=== PATIENT | male | born 1990 | race African-American/Black ===

== ENCOUNTER 2025-03-11 10:32 | Outpatient (REF) | payer OTHER, SELFPAY ==
--- NOTE | ~2025-03-11 | XR_ITS ---
EXAMINATION: XR KNEE 3 VIEWS LEFT HISTORY: knee pain x 10 + y COMPARISON: There are no prior studies available for comparison. FINDINGS: Three views of the left knee are submitted. Osseous mineralization is normal. There is no fracture or dislocation. The joint spaces are preserved. The soft tissues are unremarkable. XR/XR knee LT 3V IMPRESSION: Unremarkable examination of the left knee. Electronically signed by: Joshua Robertson MD 03/11/2025 01:55 PM EDT
--- OUTSIDE RECORDS SUMMARY | 2025-03-11 09:30 | XMS_ITS | Encounter Summary ---
Author Organization [employer] Address [address] [facility] 7t [place] [address] Care Team Providers Care Business Area Director Name Role Phone Lottie Funez MD Primary Care Provider + Reason for Referral * Consultation (Routine) - Authorized Specialty Diagnoses / Procedures Referred By Contac t Referred To Contact Optometry Diagnoses Elevated blood pressure reading Lottie Funez MD [address] [place] [address] Phone: tel: fax: [facility] [address] [place] [phone] Phone: tel: fax: Referral ID Status Reason Start Date Expiration Date Visits Requested Visits Authorized [id number] Authorized Consult and Treat 03/11/2025 03/11/2026 1 1 Reason for Visit * Reason Comments new patient Encounter Details Date Type Department Care Team (Late st Contact Info) Description 03/11/2025 9:30 AM EDT Office Visit [facility] [address] [place] [phone] Lottie Funez MD [address] [place] [address] Elevated blood pressure reading (Primary Dx); Chronic pain of left knee; Screening examination for sexually transmitted disease Social History Tobacco Use Types Packs/Day Years Used Date Smoking Tobacco: Never Passive Smoke Exposure: Never Smokeless Tobacco: Never Tobacco Cessation:Counseling Given: Not Answered Alcohol Use Standard Drinks/Week Comments Never 0 (1 standard drink = 0.6 oz pur e alcohol) Depression Answer Date Recorded Patient Health Questionnaire-9 Score 0 03/11/2025 Patient Health Questionnaire-9 Score 0 03/11/2025 Last PHQ-9: Questionnaire Data Not on file 0 03/11/2025 Housing Stability Answer Date Recorded What is your housing situation today? I do not have housing (Staying with others, in a hotel, in a alf, living outside on the street, on a beach, in a car, or in a park 03/11/[address] you li ve. Do you have problems with any of the following? None of the above 03/11/2025 Food Insecurity Answer Date Recorded Within the past 12 months, y ou worried that your food would run out before you got money to buy more: Never True 03/11/2025 Within the past 12 months,th e food you bought just didn't last and you didn't have enough money to get more: Never True 04/2025 Transportation Answer Date Recorded In the past 12 months, has l ack of transportation kept you from medical appts, meetings, work or from getting things needed for daily living? Yes, it has kept me from medical appointments or getting medications. 03/11/2025 Utilities Answer Date Recorded In the past 12 months, has t he electric, gas, oil or water company threatened to shut off services in your home? No 03/11/2025 Depression Answer Date Recorded Patient Health Questionnaire-2 Score 0 03/11/2025 Internet Access Answer Date Recorded Internet Access Q1 Yes 03/11/2025 Internet Access Q2 Not on file 03/11/2025 Sex and Gender Information Value Date Recorded Sex Assigned at Male 01/27/2025 2:03 PM EDT Legal Sex Male 2:02 PM EDT Gender Identity Male 01/27/2025 2:03 PM EDT Sexual Orientation Don't know 03/10/2025 3: 51 PM EDT documented as of this encounter Last Filed Vital Signs Vital Sign Reading Time Taken Comments Blood Pressure 120/84 03/11/2025 9:35 AM EDT Pulse 68 03/11/2025 9:35 AM EDT Temperature 36.4 C (97.6 F) 03/11/2025 9:35 AM EDT Respiratory Rate 17 03/11/2025 9:35 AM EDT Oxygen Saturation 99% 03/11/2025 9:35 AM EDT Inhaled Oxygen Concentration - - Weight 75.2 kg (165 lb 12.8 oz) 03/11/2025 9:35 AM EDT Height 175.3 cm (5' 9 ) 03/11/2025 9:35 AM EDT Body Mass Index 24.48 03/11/2025 9:35 AM EDT documented in this encounter Functional Status * Over the past 2 weeks, how often have you been bothered by any of the following problems? Question Answer Date of Assessment Author Patient Health Questionnaire -2 Score 0 03/11/2025 10:23 AM EDT Stella Oshea MA * Little interest or pleasure in doing things Answer Date of Assessment Author Not at all 03/11/2025 10:23 AM CECIT Stella Oshea MA * Feeling down, depressed, or hopeless Answer Date of Assessment Author Not at all 03/11/2025 10:23 AM CECIT Stella Oshea MA * Trouble falling or staying asleep, or sleeping too much Answer Date of Assessment Author Not at all 03/11/2025 10:23 AM CECIT Stella Oshea MA * Feeling tired or having little energy Answer Date of Assessment Author Not at all 03/11/2025 10:23 AM CECIT Stella Oshea MA * Poor appetite or overeating Answer Date of Assessment Author Not at all 03/11/2025 10:23 AM CEICT Stella Oshea MA * Feeling bad about yourself - or that you are a failure or have let yourself or your family down Answer Date of Assessment Author Not at all 03/11/2025 10:23 AM CECIT Stella Oshea MA * Trouble concentrating on things, such as reading the newspaper or watching television Answer Date of Assessment Author Not at all 03/11/2025 10:23 AM Stella Dc MA * Moving or speaking so slowly that other people could have noticed? Or the opposite - being so fidgety or restless that you have been moving around a lot more than usual. Answer Date of Assessment Author Not at all 03/11/2025 10:23 AM Stella Dc MA * Thoughts that you would be better off or hurting yourself in some way Answer Date of Assessment Author Not at all 03/11/2025 10:23 AM EDT Stella Oshea MA * Patient Health Questionnaire-9 Score Answer Date of Assessment Author 0 03/11/2025 10:23 AM EDT Stella Oshea MA * Over the last 2 weeks, how often have you been bothered by any of the following problems? Question Answer Date of Assessment Author Feeling nervous, anxious, or on edge 0 03/11/2025 10:22 AM EDT Stella Oshea MA Not being able to stop or co ntrol worrying 0 03/11/2025 10:22 AM EDT Stella Oshea MA Worrying too much about diff erent things 0 03/11/2025 10:22 AM EDT Stella Oshea MA Trouble relaxing 0 03/11/2025 10:22 AM EDT Stella Oshea MA Being so restless that it is hard to sit still 0 03/11/2025 10:22 AM EDT Stella Oshea MA Becoming easily annoyed or irritable 0 03/11/2025 10:22 AM EDT Stella Oshea MA Feeling afraid as if somethi ng awful might happen 0 03/11/2025 10:22 AM CECIT Stella Oshea MA JAVIER-7 Total Score 0 03/11/2025 10:22 AM EDT Stella Oshea MA documented as of this encounter Progress Notes * Lottie Funez MD - 03/11/2025 9:30 AM EDT SUBJECTIVE: Jim Graham is a 34 y.o. 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 Denies recent illness, injury, or hospitalization. Interview done with in house zimbabwean creole train driver Martha . 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 Acute Concerns: Concerned re high BP reading 2-3y ago around 160s/?. He has never had high BP again. Social History Social History Narrative Not on file Problem List[1] Family History[2] Review of Systems Constitutional: Positive for fatigue. Negative for fever. HENT: Negative for congestion, ear pain, rhinorrhea and sore throat. Eyes: Negative for pain and discharge. Respiratory: Negative for cough and shortness of breath. Cardiovascular: Negative for chest pain. Gastrointestinal: Negative for abdominal pain, constipation, diarrhea and nausea. Endocrine: Negative for polydipsia. Genitourinary: Negative for dysuria and frequency. Musculoskeletal: Positive for arthralgias (knees x 5y). Negative for back pain and neck pain. Neurological: Negative for dizziness, numbness and headaches. Psychiatric/Behavioral: Negative for agitation. OBJECTIVE: Vitals: 03/11/25 0935 BP: 120/84 Pulse: 68 Resp: 17 Temp: 97.6 ??F (36.4 ??C) SpO2: 99% Physical Exam Constitutional: Appearance: Normal appearance. HENT: Right Ear: Tympanic membrane and ear canal normal. Left Ear: Tympanic membrane and ear canal normal. Mouth/Throat: Mouth: Mucous membranes are moist. Pharynx: No oropharyngeal exudate or posterior oropharyngeal erythema. Eyes: Pupils: Pupils are equal, round, and reactive to light. Cardiovascular: Rate and Rhythm: Normal rate and regular rhythm. Heart sounds: No murmur heard. Pulmonary: Breath sounds: Normal breath sounds. No wheezing. Abdominal: General: Bowel sounds are normal. Palpations: Abdomen is soft. Tenderness: There is no abdominal tenderness. Musculoskeletal: General: No tenderness. Normal range of motion. Cervical back: Normal range of motion. No tenderness. Skin: General: Skin is warm. Neurological: General: No focal deficit present. Mental Status: He is alert and oriented to person, place, and time. Psychiatric: Mood and Affect: Mood normal. Problem List Items Addressed This Visit Elevated blood pressure reading - Primary Continue to monitor BP at home and fu with me in 2-4mo Counseled re low salt diet/increase moderate physical activity. Check home BP BIW and prn CP/VELÁZQUEZ/GOMEZ Non smoking patient. Relevant Orders CBC auto differential Comprehensive Metabolic Panel Lipid Panel with Reflex to Direct LDL Chronic pain of left knee Most likely OA/?post traumatic arthritis. Order Xrays, di/w patient re rx including NSAIDS, PT, he wants to hold off until after Xrays are done/ Relevant Orders Vitamin D, 25-Hydroxy, Total, Immunoassay XR Knee 3 Views Left Screening examination for sexually transmitted disease D/w patient re STI prevention, use of condoms, PrEP. Order labs and fu w me in 2mo Relevant Orders T-SPOT??.TB HIV-1/2 Antigen and Antibodies, Fourth Generation, with Reflexes Hepatitis Panel, General Chlamydia/N. Gonorrhoeae RNA, TMA, Urogenitial Syphilis Screen Follow Up: Medications Ordered Prior to Encounter[3] [1] Patient Active Problem List Diagnosis Elevated blood pressure reading Chronic pain of left knee Screening examination for sexually transmitted disease [2] No family history on file. [3] No current outpatient medications on file prior to visit. No current facility-administered medications on file prior to visit. documented in this encounter Miscellaneous Notes * Assessment & Plan Note - Lottie uFnez MD - 03/11/2025 10:01 AM EDT Associated Problem(s): Screening examination for sexually transmitted disease D/w patient re STI prevention, use of condoms, PrEP. Order labs and fu w me in 2mo * Assessment & Plan Note - Lottie Funez MD - 03/11/2025 9:59 AM EDT Associated Problem(s): Chronic pain of left knee Most likely OA/?post traumatic arthritis. Order Xrays, di/w patient re rx including NSAIDS, PT, he wants to hold off until after Xrays are done/ * Assessment & Plan Note - Lottie Funez MD - 03/11/2025 9:57 AM EDT Associated Problem(s): Elevated blood pressure reading Continue to monitor BP at home and fu with me in 2-4mo Counseled re low salt diet/increase moderate physical activity. Check home BP BIW and prn CP/VELÁZQUEZ/GOMEZ Non smoking patient. documented in this encounter Plan of Treatment Upcoming Encounters Date Type Department Care Team (Late st Contact Info) Description 05/25/2025 9:45 AM EST Office Visit [facility] [address] [place], [place] [phone] Lottie Funez MD [address] [place] [phone] Pending Results Name Type Priority Associated Diagnoses Date /Time Comprehensive Metabolic Panel Lab Routine Elevated blood pressure reading 03/11/2025 10:43 AM EDT Lipid Panel with Reflex to Direct LDL Lab Routine Elevated blood pressure reading 03/11/2025 10:43 AM EDT Vitamin D, 25-Hydroxy, Total, Immunoassay Lab Routine Chronic pain of left knee 03/11/2025 10:43 AM EDT Scheduled Orders Name Type Priority Associated Diagnoses Orde r Schedule T-SPOT .TB Lab Routine Screening examination for sexually transmitted disease Expected: 03/11/2025 (Approximate), Expires: 03/11/2026 HIV-1/2 Antigen and Antibodies, Fourth Generation, with Reflexes Lab Routine Screening examination for sexually transmitted disease Expected: 03/11/2025 (Approximate), Expires: 03/11/2026 Hepatitis Panel, General Lab Routine Screening examination for sexually transmitted disease Expected: 03/11/2025 (Approximate), Expires: 03/11/2026 Chlamydia/N. Gonorrhoeae RNA, TMA, Urogenitial Microbiology Routine Screening examination for sexually transmitted disease Ordered: 03/11/2025 Syphilis Screen Lab Routine Screening examination for sexually transmitted disease Expected: 03/11/2025 (Approximate), Expires: 03/11/2026 XR Knee 3 Views Left Imaging Routine Chronic pain of left knee Expected: 03/11/2025 (Approximate), Expires: 03/11/2026 Scheduled Referrals Name Type Priority Associated Diagnoses Orde r Schedule Referral to Optometry Outpatient Referral Routine Elevated blood pressure reading Expected: 03/11/2025 (Approximate), Expires: 03/11/2026 documented as of this encounter Procedures Procedure Name Priority Date/Time Associated Diagnosis Comments VITAMIN D,25-OH,TOTAL,IA Routine 03/11/2025 10:43 AM EDT Chronic pain of left knee LIPID PANEL WITH REFLEX TO DIRECT LDL Routine 03/11/2025 10:43 AM EDT Elevated blood pressure reading CBC WITH AUTO DIFFERENTIAL Routine 03/11/2025 10:43 AM EDT Elevated blood pressure reading COMPREHENSIVE METABOLIC PANEL Routine 03/11/2025 10:43 AM EDT Elevated blood pressure reading documented in this encounter Results * (ABNORMAL) CBC auto differential (03/11/2025 10:43 AM EDT) White Blood Count 3.7(L) 4.8 - 10.8 X10*3/uL [facility] Red Blood Count 4.97 4.60 - 5.80 X10*6/uL [facility] Hemoglobin 14.0 14.0 - 18.0 g/dl [facility] Hematocrit 43.4 42.0 - 52.0 % [facility] Mean Corpuscular Volume 87.3 80.0 - 98.0 fL [facility] Mean Corpuscular Hemoglobin 28.2 27.0 - 33.0 pg [facility] Mean Corpuscular HGB Conc 32.3 31.0 - 36.0 g/dl [facility] Red Cell Distribution Width 11.1 11.0 - 16.0 % [facility] Platelet Count 282 160 - 400 X10*3/uL [facility] Mean Platelet Volume 11.2 9.4 - 12.4 fL [facility] Neutrophils Percent Auto 57.2 45 - 73 % [facility] Imm Gran Pct Auto 0.5(H) 0.0 - 0.4 % [facility] Lymphocytes Percent Auto 35.7 20 - 40 % [facility] Monocytes Percent Auto 5.6 2 - 11 % [facility] Eosinophils Percent Auto 0.5 0 - 4 % [facility] Basophils Percent Auto 0.5 0 - 2 % [facility] NRBC Pct Auto 0.0 0.0 - 0.2 /100WBC [facility] Neutrophils Absolute Auto 2.1 2.0 - 8.3 x10*3/uL [facility] Imm Gran Abs Auto 0.02 0.00 - 0.03 X10*3/uL [facility] Lymphocytes Absolute Auto 1.3 1.2 - 4.9 X10*3/uL [facility] Monocytes Absolute Auto 0.2 0.1 - 1.2 X10*3/uL [facility] Eosinophils Absolute Auto 0.0 0.0 - 0.4 X10*3/uL [facility] Basophils Absolute Auto 0.0 0.0 - 0.2 X10*3/uL [facility] NRBC Abs Auto 0.000 0.0 - 0.012 X10*3/uL [facility] Blood Venous blood specimen / Unknown 03/11/2025 10:43 AM EDT 03/11/2025 11:30 AM EDT Lottie Funez MD LAB BLOOD ORDERABLES Fin al Result [facility] [address] [place] [phone] documented in this encounter Visit Diagnoses Diagnosis Elevated blood pressure reading- Primary Elevated blood pressure reading without diagnosis of hypertension Chronic pain of left knee Screening examination for sexually transmitted disease documented in this encounter Additional Health Concerns Assessment Noted Time PHQ-9 Depression Total Score: 0 03/11/20 25 10:23 AM EDT documented as of this encounter Care Teams Business Area Director Relationship Specialty Start Date End Date Lottie Funez MD [address] [place] [phone] PCP - General Internal Medicine 03/11/25 documented as of this encounter
[2025-03-11 11:34] LABS: MANUAL DIFF FLAG NO
[2025-03-11 12:01] LABS: Hematocrit 43.4 % (42.0-52.0); Hemoglobin 14.0 g/dl (14.0-18.0); Imm Gran Abs Auto 0.02 X10*3/uL (0.00-0.03); Imm Gran Pct Auto 0.5 % (0.0-0.4); Lymphocytes Absolute Auto 1.3 X10*3/uL (1.2-4.9); Mean Corpuscular HGB Conc 32.3 g/dl (31.0-36.0); Mean Corpuscular Hemoglobin 28.2 pg (27.0-33.0); Mean Corpuscular Volume 87.3 fL (80.0-98.0); NRBC Abs Auto 0.000 X10*3/uL (0.0-0.012); NRBC Pct Auto 0.0 /100WBC (0.0-0.2); Platelet Count 282 X10*3/uL (160-400); Red Blood Count 4.97 X10*6/uL (4.60-5.80); White Blood Count 3.7 X10*3/uL (4.8-10.8)
[2025-03-11 12:23] LABS: Alanine Aminotransferase 29 U/L (0-40); Albumin Level 5.0 g/dL (3.5-5.0); Alkaline Phosphatase 65 U/L (39-117); Anion Gap 12 (12-20); Aspartate Amino Transferase 28 U/L (5-37); Blood Urea Nitrogen 8 mg/dL (9-16); Calcium 9.0 mg/dL (8.4-10.2); Carbon Dioxide 30 mmol/L (22-29); Chloride 104 mmol/L (96-108); Cholesterol 120 mg/dL (<200); Estimated Glomerular Filt Rate > 60; HDL Cholesterol 33 mg/dL (>40); Potassium 4.6 mmol/L (3.3-5.1); Sodium 141 mmol/L (135-145); Total Protein 7.5 g/dL (6.5-8.0); Triglycerides 65 mg/dL (<150)
--- OUTSIDE RECORDS SUMMARY | 2025-03-11 13:07 | XMS_ITS | Encounter Summary ---
Author Organization [employer] Address [address] [facility] 7[address] [place] [address] Care Team Providers Care Entertainment Centre Manager Name Role Phone Unavailable Primary Care Provider Unavailabl e Reason for Visit * Reason Onset Date Comments Chart Prep 03/10/2025 Encounter Details Date Type Department Care Team (Late st Contact Info) Description 03/10/2025 Telephone [facility] [address] [place], [place] [phone] Lottie Funez MD [address] [place], [place] [phone] Chart Prep Social History Tobacco Use Types Packs/Day Years Used Date Smoking Tobacco: Never Assessed Depression Answer Date Recorded Patient Health Questionnaire-9 Score 0 03/11/2025 Patient Health Questionnaire-9 Score 0 03/11/2025 Last PHQ-9: Questionnaire Data Not on file 0 03/11/2025 Housing Stability Answer Date Recorded What is your housing situation today? I do not have housing (Staying with others, in a hotel, in a assisted, living outside on the street, on a [...] PM EDT documented as of this encounter Miscellaneous Notes * Telephone Encounter - Miranda Crane MA - 03/10/2025 1:44 PM EDT Chart Prep Labs: not applicable Images: not applicable Referrals: not applicable Vaccines due: Covid, Flu, Tdap, Hep B, and HPV Screenings: HIV Screening, Hepatitis C Screening Overdue care gaps: SBIRT, SDOH, PHQ-9, JAVIER-7, Oral health screening, Disability screen, and Tobacco documented in this encounter Plan of Treatment Upcoming Encounters Date Type Department Care Team (Late st Contact Info) Description 05/25/2025 9:45 AM EST Office Visit [facility] [address] [place] [address] Lottie Funez MD [address] [place] [phone] documented as of this encounter Visit Diagnoses Not on filedocumented in this encounter
--- OUTSIDE RECORDS SUMMARY | 2025-03-11 13:07 | XMS_ITS | Clinical Summary ---
Author Organization [employer] Address [address] [facility] [address] 7[address] [place] [address] Care Team Providers Care Chemists Name Role Phone Lottie Funez MD Primary Care Provider + Allergies No known active allergies Medications Blood Pressure Monitoring (Blood Pressure Cuff) [facility] Use daily as prescribed 1 each Active Active Problems Problem Noted Date Diagnosed Date Elevated blood pressure reading 03/11/2025 Assessment & Plan (03/11/2025 9:57 AM EDT): Continue to monitor BP at home and fu with me in 2-4mo Counseled re low salt diet/increase moderate physical activity. Check home BP BIW and prn CP/VELÁZQUEZ/GOMEZ Non smoking patient. Chronic pain of left knee 03/11/2025 Assessment & Plan (03/11/2025 9:59 AM EDT): Most likely OA/?post traumatic arthritis. Order Xrays, di/w patient re rx including NSAIDS, PT, he wants to hold off until after Xrays are done/ Screening examination for sexually transmitted d isease 03/11/2025 Assessment & Plan (03/11/2025 10:01 AM EDT): D/w patient re STI prevention, use of condoms, PrEP. Order labs and fu w me in 2mo Encounters Date Type Department Care Team Description 03/11/2025 9:30 AM EDT Office Visit [facility] [address] [place], [place] [phone] Lottie Funez MD Elevated blood pressure reading (Primary Dx); Chronic pain of left knee; Screening examination for sexually transmitted disease 03/11/2025 Travel 03/10/2025 Telephone [facility] [address] [place] [address] Lottie Funez MD Chart Prep 03/05/2025 Telephone [facility] [address] [place] [address] Anirudh Kuhn MD New Patient appt. 01/27/2025 Telephone [facility] [address] [place] [phone] Alissa Dennis MD from Last 3 Months Social History Tobacco Use Types Packs/Day Years [...] with others, in a hotel, in a fpc, living outside on the street, on a [...] Don't know 03/10/2025 3: 51 PM EDT Last Filed Vital Signs Vital Sign Reading [...] Mass Index 24.48 03/11/2025 9:35 AM EDT Plan of Treatment Upcoming Encounters Date Type Department Care Team (Late st Contact Info) Description 05/25/2025 9:45 AM EST Office Visit [facility] [address] [place], [place] [phone] Lottie Funez MD [address] [place] [address] Health Maintenance Due Date Last Done Comments HIV Screening 1988 Family Planning (PISQ) 2003 HPV Vaccines (1 - Male 3-dos e series) 2003 Hepatitis C Screening 2006 DTaP/Tdap/Td Vaccines (1 - Tdap) 2007 Hepatitis B Vaccines (1 of 3 - 19+ 3-dose series) 2007 COVID-19 Vaccine (1 - 2023-2 5 season) 2025 Influenza Vaccine (#1) 2025 Alcohol/Substance Use Screening 03/11/2026 03/11/2025 Depression Screening 03/11/2026 03/11/2025, 03/11/2025 Disability Screening 03/11/2026 03/11/2025 SDOH Screening 03/11/2026 03/11/2025 Tobacco Screening 03/11/2026 03/11/2025 Lipid Panel 03/11/2030 03/11/2025 Zoster Vaccines (1 of 2) 2038 RSV Patients and Patients Aged 60 years or older (1 - 1-dose 75+ series) 2063 HIB Vaccines Aged Out No longer eligi ble based on patient's age to complete this topic Hepatitis A Vaccines Aged Out No long er eligible based on patient's age to complete this topic IPV Vaccines Aged Out No longer eligi ble based on patient's age to complete this topic Meningococcal B Vaccine Aged Out No l onger eligible based on patient's age to complete this topic Meningococcal Vaccine Aged Out No mar christopher eligible based on patient's age to complete this topic Pneumococcal Vaccine: Pediatrics (0 to 5 Years) and At-Risk Patients (6 to 49) Years Aged Out No longer eligible b ased on patient's age to complete this topic RSV under 20 months Aged Out No longe r eligible based on patient's age to complete this topic Rotavirus Vaccines Aged Out No longer eligible based on patient's age to complete this topic Procedures Procedure Name Priority Date/Time Associated Diagnosis Comments VITAMIN D,25-OH,TOTAL,IA Routine 03/11/2025 10:43 AM EDT Chronic pain of left knee LIPID PANEL WITH REFLEX TO DIRECT LDL Routine 03/11/2025 10:43 AM EDT Elevated blood pressure reading COMPREHENSIVE METABOLIC PANEL Routine 03/11/2025 10:43 AM EDT Elevated blood pressure reading CBC WITH AUTO DIFFERENTIAL Routine 03/11/2025 10:43 AM EDT Elevated blood pressure reading from Last 3 Months Results * (ABNORMAL) CBC auto differential (03/11/2025 10:43 AM EDT) White Blood Count 3.7(L) 4.8 - 10.8 X10*3/uL [facility] Red Blood Count 4.97 4.60 - 5.80 X10*6/uL [facility] Hemoglobin 14.0 14.0 - 18.0 g/dl [facility] Hematocrit 43.4 42.0 - 52.0 % [facility] Mean Corpuscular Volume 87.3 80.0 - 98.0 fL [facility] Mean Corpuscular Hemoglobin 28.2 27.0 - 33.0 pg [facility] Mean Corpuscular HGB Conc 32.3 31.0 - 36.0 g/dl [facility] Red Cell Distribution Width 11.1 11.0 - 16.0 % [facility] Platelet Count 282 160 - 400 X10*3/uL [facility] Mean Platelet Volume 11.2 9.4 - 12.4 fL [facility] Neutrophils Percent Auto 57.2 45 - 73 % [facility] Imm Gran Pct Auto 0.5(H) 0.0 - 0.4 % [facility] Lymphocytes Percent Auto 35.7 20 - 40 % [facility] Monocytes Percent Auto 5.6 2 - 11 % [facility] Eosinophils Percent Auto 0.5 0 - 4 % [facility] Basophils Percent Auto 0.5 0 - 2 % [facility] NRBC Pct Auto 0.0 0.0 - 0.2 /100WBC [facility] Neutrophils Absolute Auto 2.1 2.0 - 8.3 x10*3/uL [facility] Imm Gran Abs Auto 0.02 0.00 - 0.03 X10*3/uL [facility] Lymphocytes Absolute Auto 1.3 1.2 - 4.9 X10*3/uL [facility] Monocytes Absolute Auto 0.2 0.1 - 1.2 X10*3/uL [facility] Eosinophils Absolute Auto 0.0 0.0 - 0.4 X10*3/uL [facility] Basophils Absolute Auto 0.0 0.0 - 0.2 X10*3/uL [facility] NRBC Abs Auto 0.000 0.0 - 0.012 X10*3/uL [facility] Blood Venous blood specimen / Unknown 03/11/2025 10:43 AM EDT 03/11/2025 11:30 AM EDT us Lottie Funez MD LAB BLOOD ORDERABLES Fin al Result [facility] [address] [place] [phone] from Last 3 Months Insurance N F[employer] Care Teams Chemists Relationship Specialty Start Date End Date Lottie Funez MD [address] [place] [phone] PCP - General Internal Medicine 03/11/25
--- OUTSIDE RECORDS SUMMARY | 2025-03-11 13:07 | XMS_ITS | Encounter Summary ---
Author Organization [employer] Address [address] [facility] [address] [place] [address] Care Team Providers Care Senior Product Engineer Name Role Phone Lottie Funez MD Primary Care Provider + Encounter Details Date Type Department Care Team (Latest Contact Info) Description 03/11/2025 Travel Social History Tobacco Use Types Packs/Day Years Used Date Smoking Tobacco: Never Passive Smoke Exposure: Never Smokeless Tobacco: Never Alcohol Use Standard Drinks/Week Comments Never 0 [...] with others, in a hotel, in a longterm, living outside on the street, on a [...] PM EDT documented as of this encounter Functional Status * Over the past 2 weeks, how often have you been bothered by any of the following problems? Question Answer Date of Assessment Author Patient Health Questionnaire -2 Score 0 03/11/2025 10:23 AM Stella Dc MA * Little interest or pleasure in doing things Answer Date of Assessment Author Not at all 03/11/2025 10:23 AM Stella Dc MA * Feeling down, depressed, or hopeless Answer Date of Assessment Author Not at all 03/11/2025 10:23 AM Stella Dc MA * Trouble falling or staying asleep, or sleeping too much Answer Date of Assessment Author Not at all 03/11/2025 10:23 AM Stella Dc MA * Feeling tired or having little energy Answer Date of Assessment Author Not at all 03/11/2025 10:23 AM Stella Dc MA * Poor appetite or overeating Answer Date of Assessment Author Not at all 03/11/2025 10:23 AM Stella Dc MA * Feeling bad about yourself - or that you are a failure or have let yourself or your family down Answer Date of Assessment Author Not at all 03/11/2025 10:23 AM Stella Dc MA * Trouble concentrating on things, such [...] 03/11/2025 10:23 AM Stella Dc MA * Patient Health Questionnaire-9 Score Answer Date of Assessment Author 0 03/11/2025 10:23 AM Stella Dc MA * Over the last 2 weeks, how often have you been bothered by any of the following problems? Question Answer Date of Assessment Author Feeling nervous, anxious, or on edge 0 03/11/2025 10:22 AM CECIT Stella Oshea MA Not being able to stop or co ntrol worrying 0 03/11/2025 10:22 AM Stella Dc MA Worrying too much about diff erent things 0 03/11/2025 10:22 AM Stella Dc MA Trouble relaxing 0 03/11/2025 10:22 AM Stella Dc MA Being so restless that it is hard to sit still 0 03/11/2025 10:22 AM Stella Dc MA Becoming easily annoyed or irritable 0 03/11/2025 10:22 AM Stella Dc MA Feeling afraid as if somethi ng awful might happen 0 03/11/2025 10:22 AM Stella Dc MA JAVIER-7 Total Score 0 03/11/2025 10:22 AM Stella Dc MA documented as of this encounter Plan of Treatment Upcoming Encounters Date Type Department Care Team (Late st Contact Info) Description 05/25/2025 9:45 AM EST Office Visit [facility] [address] [place] [address] Lottie Funez MD [address] [place] [address] documented as of this encounter Visit Diagnoses Not on filedocumented in this encounter Additional Health Concerns Assessment Noted Time PHQ-9 Depression Total Score: 0 03/11/20 10:23 AM EDT documented as of this encounter Care Teams Senior Product Engineer Relationship Specialty Start Date End Date Lottie Funez MD [address] [place] [phone] PCP - General Internal Medicine 03/11/25 documented as of this encounter
[2025-03-11 13:16] LABS: Reflex LDLD? No
[2025-03-12 08:21] LABS: HBS Num1 1.85 mIU/mL (0-7.99); HBc Num1 0.08 S/CO (0.00-0.79); HBsAGNum1 0.53 S/CO (0.00-0.99); HIV Num 1 0.04 S/CO (0.00-0.99); Hepatitis A Antibody IgM 0.34 Index (0-0.79); Hepatitis B Surface Antigen Negative (Negative); ~HepC Num1 0.08 S/CO (0.00-0.79); ~Hepatitis A Antibody IgM Nonreactive (Nonreactive); ~Hepatitis B Surface Antibody NONREACTIVE (Nonreactive); ~Hepatitis C Antibody Nonreactive (Nonreactive)
[2025-03-12 08:28] LABS: Syphilis Screen Nonreactive (Nonreactive)
[2025-03-14 08:24] LABS: TS Negative Control Passed; TS Panel A 0; TS Panel B 0; TS Positive Control Passed; TSpotTB Negative (Negative)
== END 2025-03-11 10:33 | disposition home or self-care (01) ==
LOC: HO.HHCL 10:32
PROVIDERS: PCP Internal Medicine; Visit Provider Internal Medicine
DX: Z11.4 Encounter for screening for human immunodeficiency virus [HIV] (principal); Z11.1 Encounter for screening for respiratory tuberculosis; M25.562 Pain in left knee; G89.29 Other chronic pain; R03.0 Elevated blood-pressure reading, without diagnosis of hypertension; Z13.6 Encounter for screening for cardiovascular disorders; Z13.21 Encounter for screening for nutritional disorder
CPT/HCPCS: 36415; 73562; 80053; 80061; 82306; 85025; 86481; 86704; 86706; 86709; 86780; 86803; 87340; 87389

== ENCOUNTER → 2025-03-11 10:53 | Outpatient (BNV) | payer SELFPAY | PROVIDERS: PCP Internal Medicine; Visit Provider Radiology Diagnostic Radiology | DX: M25.562 Pain in left knee (principal) | CPT/HCPCS: 73562 ==

== ENCOUNTER 2025-05-25 11:20 | Outpatient (REF) | payer OTHER, SELFPAY ==
--- OUTSIDE RECORDS SUMMARY | 2025-05-25 09:45 | XMS_ITS | Encounter Summary ---
Author Organization [email or web address] Address [address] [facility] [address] [place] [address] Care Team Providers Care Sling Operator Name Role Phone Lottie Funez MD Primary Care Provider + Reason for Referral * Consultation (Routine) - Canceled Specialty Diagnoses / Procedures Referred By Yuval t Referred To Contact Physical Therapy Diagnoses Chronic pain of left knee Lottie Funez MD [address] [place] [address] Phone: tel: fax: [facility] [address] [place] [phone] Phone: tel: fax: Referral ID Status Reason Start Date Expiration Date Visits Requested Visits Authorized [id number] Canceled Specialty Services Required 05/25/2025 05/25/2026 1 1 Encounter Details Date Type Department Care Team (Late st Contact Info) Description 05/25/2025 9:45 AM EST Office Visit [facility] [address] [place] [address] [phone] Lottie Funez MD [address] [place] [address] [phone] Chronic pain of left knee (Primary Dx); Elevated blood pressure reading; Leukocytosis, unspecified type; Immunization declined; Dietary counseling; Exercise counseling; Overweight Social History Tobacco Use Types Packs/Day Years Used Date Smoking Tobacco: Never Passive Smoke Exposure: Never Smokeless Tobacco: Never Alcohol Use Standard Drinks/Week Comments Never 0 (1 standard drink = 0.6 oz pur e alcohol) Alcohol Answer Date Recorded How often do you have a drink containing alcohol ? 1 05/25/2025 How many drinks containing a lcohol do you have on a typical day when you are drinking? 0 05/25/2025 How often do you have six or more drinks on one occasion? 0 05/25/2025 Depression Answer Date Recorded Patient Health Questionnaire-9 Score 0 03/11/2025 Patient Health Questionnaire-9 Score 0 03/11/2025 Last PHQ-9: Questionnaire Data Not on file 0 03/11/2025 Housing Stability Answer Date Recorded What is your housing situation today? I do not have housing (Staying with others, in a hotel, in a penitentiary, living outside on the street, on a [...] Sign Reading Time Taken Comments Blood Pressure 118/74 05/25/2025 9:54 AM EST Pulse 69 05/25/2025 9:54 AM EST Temperature 36.9 C (98.5 F) 05/25/2025 9:54 AM EST Respiratory Rate 18 05/25/2025 9:54 AM EST Oxygen Saturation 100% 05/25/2025 9:54 AM EST Inhaled Oxygen Concentration - - Weight 75.9 kg (167 lb 6.4 oz) 05/25/2025 9:54 A M EST Height 172 cm (5' 7.72 ) 05/25/2025 9:54 AM EST Body Mass Index 25.67 05/25/2025 9:54 AM EST documented in this encounter Miscellaneous Notes * Assessment & Plan Note - Mague Irwin NP - 05/25/2025 9:45 AM EST Associated Problem(s): Chronic pain of left knee - Chronic left knee pain persists despite normal X-ray findings, with no evidence of fracture or soft tissue swelling. - Recommended initiation of physical therapy to address ongoing pain and improve function. Providededucation regarding the purpose and benefits of physical therapy. - Encouraged to return to the office for a visit if there is an exacerbation to his condition - Continue with the use of the Ibuprofen as needed. * Assessment & Plan Note - Mague Irwin NP - 05/25/2025 9:45 AM EST Associated Problem(s): Elevated blood pressure reading - Elevated blood pressure noted on previous visit, no new symptoms such as headache, dizziness, dyspnea, or visual changes reported. - Advised lifestyle modifications including increased exercise and dietary changes to improve cardiovascular health and raise HDL cholesterol. Recommended follow-up monitoring of blood pressure - Encouraged to monitor BP 2-3 times per week, report findings during his next visit. documented in this encounter Plan of Treatment Upcoming Encounters Date Type Department Care Team (Late st Contact Info) Description 08/11/2025 1:00 PM EST Office Visit [facility] [address] [place] [address] Stephanie Phan, OD [address] [place] [address] Scheduled Referrals Name Type Priority Associated Diagnoses Orde r Schedule Referral to Physical Therapy Outpatient Referral Routine Chronic pain of left knee Expected: 05/25/2025 (Approximate), Expires: 05/25/2026 documented as of this encounter Procedures Procedure Name Priority Date/Time Associated Diagnosis Comments CBC WITH AUTO DIFFERENTIAL Routine 05/25/2025 11:32 AM EST Leukocytosis, unspecified type documented in this encounter Results * (ABNORMAL) CBC auto differential (05/25/2025 11:32 AM EST) White Blood Count 4.7(L) 4.8 - 10.8 X10*3/uL [facility] Red Blood Count 4.64 4.60 - 5.80 X10*6/uL [facility] Hemoglobin 13.3(L) 14.0 - 18.0 g/dl [facility] Hematocrit 41.3(L) 42.0 - 52.0 % [facility] Mean Corpuscular Volume 89.0 80.0 - 98.0 fL [facility] Mean Corpuscular Hemoglobin 28.7 27.0 - 33.0 pg [facility] Mean Corpuscular HGB Conc 32.2 31.0 - 36.0 g/dl [facility] Red Cell Distribution Width 11.4 11.0 - 16.0 % [facility] Platelet Count 251 160 - 400 X10*3/uL [facility] Mean Platelet Volume 11.9 9.4 - 12.4 fL [facility] Neutrophils Percent Auto 53.4 45 - 73 % [facility] Imm Gran Pct Auto 0.2 0.0 - 0.4 % [facility] Lymphocytes Percent Auto 36.1 20 - 40 % [facility] Monocytes Percent Auto 8.2 2 - 11 % [facility] Eosinophils Percent Auto 1.5 0 - 4 % [facility] Basophils Percent Auto 0.6 0 - 2 % [facility] NRBC Pct Auto 0.0 0.0 - 0.2 /100WBC [facility] Neutrophils Absolute Auto 2.5 2.0 - 8.3 x10*3/uL [facility] Imm Gran Abs Auto 0.01 0.00 - 0.03 X10*3/uL [facility] Lymphocytes Absolute Auto 1.7 1.2 - 4.9 X10*3/uL [facility] Monocytes Absolute Auto 0.4 0.1 - 1.2 X10*3/uL [facility] Eosinophils Absolute Auto 0.1 0.0 - 0.4 X10*3/uL [facility] Basophils Absolute Auto 0.0 0.0 - 0.2 X10*3/uL [facility] NRBC Abs Auto 0.000 0.0 - 0.012 X10*3/uL [facility] Blood Venous blood specimen / Unknown 05/25/2025 11:32 AM EST 05/25/2025 1:04 PM EST us Lottie Funez MD LAB BLOOD ORDERABLES Fin al Result [facility] [address] [place] [phone] documented in this encounter Visit Diagnoses Diagnosis Chronic pain of left knee- Primary Elevated blood pressure reading Elevated blood pressure reading without diagnosis of hypertension Leukocytosis, unspecified type Immunization declined Dietary counseling Dietary surveillance and counseling Exercise counseling Overweight documented in this encounter Additional Health Concerns Assessment Noted Time PHQ-9 Depression Total Score: 0 03/11/20 25 10:23 AM EDT documented as of this encounter Care Teams Sling Operator Relationship Specialty Start Date End Date Lottie Funez MD [address] [place] [phone] PCP - General Internal Medicine 03/11/25 documented as of this encounter
[2025-05-25 13:11] LABS: MANUAL DIFF FLAG NO
[2025-05-25 13:18] LABS: Hematocrit 41.3 % (42.0-52.0); Hemoglobin 13.3 g/dl (14.0-18.0); Imm Gran Abs Auto 0.01 X10*3/uL (0.00-0.03); Imm Gran Pct Auto 0.2 % (0.0-0.4); Lymphocytes Absolute Auto 1.7 X10*3/uL (1.2-4.9); Mean Corpuscular HGB Conc 32.2 g/dl (31.0-36.0); Mean Corpuscular Hemoglobin 28.7 pg (27.0-33.0); Mean Corpuscular Volume 89.0 fL (80.0-98.0); NRBC Abs Auto 0.000 X10*3/uL (0.0-0.012); NRBC Pct Auto 0.0 /100WBC (0.0-0.2); Platelet Count 251 X10*3/uL (160-400); Red Blood Count 4.64 X10*6/uL (4.60-5.80); White Blood Count 4.7 X10*3/uL (4.8-10.8)
--- OUTSIDE RECORDS SUMMARY | 2025-05-25 14:55 | XMS_ITS | Encounter Summary ---
Author Organization [employer] Address [address] [facility] [address] [place] [address] Care Team Providers Care Soft Shoe Dancer Name Role Phone Lottie Funez MD Primary Care Provider + Encounter Details Date Type Department Care Team (Latest Contact Info) Description 05/25/2025 Travel Social History Tobacco Use Types Packs/Day [...] with others, in a hotel, in a long-term, living outside on the street, on a [...] PM EDT documented as of this encounter Plan of Treatment Upcoming Encounters Date Type Department Care Team (Late st Contact Info) Description 08/11/2025 1:00 PM EST Office Visit [facility] [address] [place] [address] Stephanie Phan, OD [address] [place] [address] documented as of this encounter Visit Diagnoses Not on filedocumented in this encounter Additional Health Concerns Assessment Noted Time PHQ-9 Depression Total Score: 0 03/11/20 10:23 AM EDT documented as of this encounter Care Teams Soft Shoe Dancer Relationship Specialty Start Date End Date Lottie Funez MD [address] [place] [phone] PCP - General Internal Medicine 03/11/25 documented as of this encounter
--- OUTSIDE RECORDS SUMMARY | 2025-05-25 14:56 | XMS_ITS | Clinical Summary ---
Author Organization [employer] Address [address] [facility] [address] [place] [address] Care Team Providers Care Vacuum Form Operator Name Role Phone Lottie Funez MD Primary Care Provider + Allergies No known active allergies Medications Blood Pressure Monitoring (Blood Pressure Cuff) misc Use daily as prescribed 1 each 5 Active Active Problems Problem Noted Date Diagnosed Date Elevated blood pressure reading 03/11/2025 Assessment & Plan (05/25/2025 11:12 AM EST): - Elevated blood pressure noted on previous visit, no new symptoms such as headache, dizziness, dyspnea, or visual changes reported. - Advised lifestyle modifications including increased exercise and dietary changes to improve cardiovascular health and raise HDL cholesterol. Recommended follow-up monitoring of blood pressure - Encouraged to monitor BP 2-3 times per week, report findings during his next visit. Assessment & Plan (03/11/2025 9:57 AM EDT): Continue to monitor BP at home and fu with me in 2-4mo Counseled re low salt diet/increase moderate physical activity. Check home BP BIW and prn CP/VELÁZQUEZ/GOMEZ Non smoking patient. Chronic pain of left knee 03/11/2025 Assessment & Plan (05/25/2025 11:12 AM EST): - Chronic left knee pain persists despite normal X-ray findings, with no evidence of fracture or soft tissue swelling. - Recommended initiation of physical therapy to address ongoing pain and improve function. Provided education regarding the purpose and benefits of physical therapy. - Encouraged to return to the office for a visit if there is an exacerbation to his condition - Continue with the use of the Ibuprofen as needed. Assessment & Plan (03/11/2025 9:59 AM EDT): [...] Encounters Date Type Department Care Team Description 05/25/2025 9:45 AM EST Office Visit [facility] MED[facility] [address] [place] [phone] Lottie Funez MD Chronic pain of left knee (Primary Dx); Elevated blood pressure reading; Leukocytosis, unspecified type; Immunization declined; Dietary counseling; Exercise counseling; Overweight 05/25/2025 Travel 05/22/2025 Telephone [facility] [address] [place] [phone] Lottie Funez MD chart prep 04/20/2025 Travel 03/19/2025 Telephone [facility] OPTOMETRY [address] [place] [address] Stephanie Phan, JOSSE 03/11/2025 9:30 AM EDT Office Visit [address] [address] Lottie Funez MD Elevated blood pressure reading (Primary Dx); Chronic pain of left knee; Screening examination for sexually transmitted disease 03/11/2025 Travel 03/10/2025 Telephone [facility] MEDICINE [address] [place] [address] Lottie Funez MD Chart Prep 03/05/[address] [address] Anirudh Kuhn MD New Patient appt. from Last 3 Months Social History Tobacco [...] with others, in a hotel, in a mcc, living outside on the street, on a [...] Mass Index 25.67 05/25/2025 9:54 AM EST Plan of Treatment Upcoming Encounters Date Type Department Care Team ([facility] st Contact Info) Description 08/11/2025 1:00 PM EST Office Visit [facility] OPTOMETRY [address] [place], [place] [phone] Tarlou Stephanie, OD [address] [place], [place] [phone] Health Maintenance Due Date Last Done Comments Family Planning (PISQ) 2003 HPV Vaccines (1 - Male 3-dos e series) 2003 DTaP/Tdap/Td Vaccines (1 - Tdap) 2007 Hepatitis B Vaccines (1 of 3 - 19+ 3-dose series) 2007 COVID-19 Vaccine ( - 2024-2 6 season) 2025 Influenza Vaccine (#1) 2025 Alcohol/Substance Use Screening 03/11/2026 03/11/2025 Depression Screening 03/11/2026 03/11/2025, 03/11/2025 Disability Screening 03/11/2026 03/11/2025 SDOH Screening 03/11/2026 03/11/2025 Tobacco Screening 05/25/2026 05/25/2025 Lipid Panel 03/11/2030 03/11/2025 Zoster Vaccines (1 of 2) 2038 RSV Patients and Patients Aged 60 years or older (1 - 1-dose 75+ series) 2063 HIV Screening Completed 03/11/2025 Hepatitis C Screening Completed 03/11/2025 HIB Vaccines Aged Out No longer eligi [...] 05/25/2025 11:32 AM EST Leukocytosis, unspecified type XR KNEE 3 VIEWS LEFT Routine 03/11/2025 1:48 PM EDT Chronic pain of left knee SYPHILIS SCREEN Routine 03/11/2025 10:43 AM EDT Screening examination for sexually transmitted disease HEPATITIS PANEL, GENERAL Routine 03/11/2025 10:43 AM EDT Screening examination for sexually transmitted disease HIV 1/2 ANTIGEN/ANTIBODY, FOURTH GENERATION W/RFL Routine 03/11/2025 10:43 AM EDT Screening examination for sexually transmitted disease T-SPOT(R).TB Routine 03/11/2025 10:43 AM EDT Screening examination for sexually transmitted disease VITAMIN D,25-OH,TOTAL,IA Routine 03/11/2025 10:43 AM EDT Chronic pain of left knee LIPID PANEL WITH REFLEX TO DIRECT LDL Routine 03/11/2025 10:43 AM EDT Elevated blood pressure reading COMPREHENSIVE METABOLIC PANEL Routine 03/11/2025 10:43 AM EDT Elevated blood pressure reading CBC WITH AUTO DIFFERENTIAL Routine 03/11/2025 10:43 AM EDT Elevated blood pressure reading from Last 3 Months Results * (ABNORMAL) CBC auto differential (05/25/2025 11:32 AM EST) Only the most recent of2 resultswithin the time period is included. White Blood Count 4.7(L) 4.8 - 10.8 X10*3/uL [facility] Red Blood Count 4.64 4.60 - 5.80 X10*6/uL [facility] Hemoglobin 13.3(L) 14.0 - 18.0 g/dl [facility] Hematocrit 41.3(L) 42.0 - 52.0 % [facility] Mean Corpuscular Volume 89.0 80.0 - 98.0 fL [facility] Mean Corpuscular Hemoglobin 28.7 27.0 - 33.0 pg [facility] Mean Corpuscular HGB Conc 32.2 31.0 - 36.0 g/dl [facility] Red Cell Distribution Width 11.4 11.0 - 16.0 % [facility] Platelet Count 251 160 - 400 X10*3/uL [facility] Mean Platelet Volume 11.9 9.4 - 12.4 fL [facility] Neutrophils Percent Auto 53.4 45 - 73 % [facility] Imm Gran Pct Auto 0.2 0.0 - 0.4 % [facility] Lymphocytes Percent Auto 36.1 20 - 40 % [facility] Monocytes Percent Auto 8.2 2 - 11 % [facility] Eosinophils Percent Auto 1.5 0 - 4 % [facility] Basophils Percent Auto 0.6 0 - 2 % [facility] NRBC Pct Auto 0.0 0.0 - 0.2 /100WBC [facility] Neutrophils Absolute Auto 2.5 2.0 - 8.3 x10*3/uL [facility] Imm Gran Abs Auto 0.01 0.00 - 0.03 X10*3/uL [facility] Lymphocytes Absolute Auto 1.7 1.2 - 4.9 X10*3/uL [facility] Monocytes Absolute Auto 0.4 0.1 - 1.2 X10*3/uL [facility] Eosinophils Absolute Auto 0.1 0.0 - 0.4 X10*3/uL [facility] Basophils Absolute Auto 0.0 0.0 - 0.2 X10*3/uL [facility] NRBC Abs Auto 0.000 0.0 - 0.012 X10*3/uL [facility] Blood Venous blood specimen / Unknown 05/25/2025 11:32 AM EST 05/25/2025 1:04 PM EST us Lottie Funez MD LAB BLOOD ORDERABLES Fin al Result Performing Organization Address City/State/[facility] Co de Phone Number [facility] [address] [place] [phone] * XR Knee 3 Views Left (03/11/2025 1:48 PM EDT) Anatomical Region Laterality Modality Lower Extremities, Knee Left Radiogra phic Imaging 03/11/2025 1:48 PM EDT Narrative 03/11/2025 1:58 PM EDT [place] [address] XRay Report Signed Patient: Jim Graham MR#: [id number] : 1990 Acct:[id number] Age/Sex: 34 / M ADM Date: 03/11/25 Loc: [facility] Attending Dr: Lottie Funez MD Ordering Physician: Lottie Funez MD Date of Service: 03/11/25 Procedure(s): XR knee LT 3V Accession Number(s): [id number] cc: Lottie Funez MD Reason for Exam: knee pain x 10 + y EXAMINATION: XR KNEE 3 VIEWS LEFT HISTORY: knee pain x 10 + y COMPARISON: There are no prior studies available for comparison. FINDINGS: Three views of the left knee are submitted. Osseous mineralization is normal. There is no fracture or dislocation. The joint spaces are preserved. The soft tissues are unremarkable. XR/XR knee LT 3V IMPRESSION: Unremarkable examination of the left knee. Electronically signed by: Joshua Robertson MD 03/11/2025 01:55 PM EDT RP Dictated By: Joshua Robertson MD Signed By: <Electronically signed by Joshua Robertson MD in OV> 03/11/25 1355 DD/ 1348 TD/TT: 03/11/251347 Traffic Control Technician: Procedure Note Donotuseinterpreter, Image - 03/11/2025 [place] [address] XRay Report Signed Patient: Hayes Graham#: [id number] : 1990Acct:[id number] Age/Sex: 34 / MADM Date: 03/11/25 Loc: [facility] Attending Dr: Lottie Funez MD Ordering Physician: Lottie Funez MD Date of Service: 03/11/25 Procedure(s): XR knee LT 3V Accession Number(s): [id number] cc: Lottie Funez MD Reason for Exam: knee pain x 10 + y EXAMINATION: XR KNEE 3 VIEWS LEFT HISTORY: knee pain x 10 + y COMPARISON: There are no prior studies available for comparison. FINDINGS: Three views of the left knee are submitted. Osseous mineralization is normal. There is no fracture or dislocation. The joint spaces are preserved. The soft tissues are unremarkable. XR/XR knee LT 3V IMPRESSION: Unremarkable examination of the left knee. Electronically signed by: Joshua Robertson MD 03/11/2025 01:55 PM EDT RP Dictated By: Joshua Robertson MD Signed By: <Electronically signed by Joshua Robertson MD in OV> 03/11/25 1355 DD/ 1348 TD/TT: 03/11/251347 Traffic Control Technician: Lottie Funez MD IMG XR PROCEDURES Final Result * Syphilis Screen (03/11/2025 10:43 AM EDT) Syphilis Screen Nonreactive Nonreactive [facility] Blood 03/11/2025 10:4 3 AM EDT 03/11/2025 11:34 AM EDT Lottie Funez MD LAB BLOOD ORDERABLES Fin al Result Performing Organization Address [facility] Co de Phone Number [facility] [address] [place] [phone] * (ABNORMAL) Vitamin D, 25-Hydroxy, Total, Immunoassay (03/11/2025 10:43 AM EDT) Vitamin D 25-OH Total 24.3(L) >30 ng/mL [facility] Comment: Health Based Reference Values*< 20 ng/mL Tcqppyaha67-38 ng/mL Insufficient> 30 ng/mL Sufficient*Miguel Angel CESAR. N Engl J Med. 2007;357:266-280There is no well-established upper level of normal vitamin Dlevels. Some laboratories use 50 ng/mL as an upper limit ofnormal. However, toxicity is patient-dependent and may occurat any level. Careful correlation with the patient'spresentation is necessary and, if there is concern forvitamin D toxicity, treatment should be consideredirrespective of the serum level.Care must be taken in interpreting Vitamin D results fromdifferent laboratories and methodologies. Published datademonstrated that results from patients undergoinghemodialysis may show a negative bias when tested withvarious automated 25-OH vitamin D assays when compared toLC-MS/MS.When testing samples from patients whose predominant form ofVitamin D is Vitamin D2, such as patients receiving VitaminD2 supplementation, results that are subtherapeutic shouldbe confirmed with another method such as LC-MS/MS. Blood 03/11/2025 10:4 3 AM EDT 03/11/2025 11:50 AM EDT Lottie Funez MD LAB BLOOD ORDERABLES Fin al Result Performing Organization Address [facility]/State/ZIP Co de Phone Number [facility] [address] [place] [phone] * T-SPOT??.TB (03/11/2025 10:43 AM EDT) T Spot TB Negative Negative [facility] Comment:A negative test resu lt does not exclude the possibilityof exposure to or infection with Mycobacteriumtuberculosis (M. tuberculosis). Patients with recentexposure to TB infected individuals exhibiting anegative T-SPOT.TB result should be considered forretesting within 6 weeks or if other relevant clinicalsymptoms indicate. Results from T-SPOT.TB testing mustbe used in conjunction with each individual'sepidemiological history, current medical status,and results of other diagnostic evaluations.The T-SPOT.TB test is qualitative and results arereported as positive, borderline, or negative, giventhat the test controls perform as expected. In linewith the Centers for Disease Control and Prevention's2010 recommendation to report quantitative measurementsalongside the qualitative result, the laboratoryprovides spot counts for informational purposes only.The T-SPOT.TB test should not be interpreted as aquantitative test. TS PANEL A 0 [facility] TS PANEL B 0 [facility] Negative Control Passed [facility] Positive Control Passed [facility] Comment:For additional infor gunner, please refer tohttp://education.YouGoDo/faq/IQW264(This link is being provided for informational/educational purposes only.)THIS TEST WAS PERFORMED AT:[employer] [id number] [place] [id number] FRY MD,PHD 03/11/2025 10:4 3 AM EDT 03/11/2025 11:50 AM EDT us Lottie Funez MD LAB BLOOD ORDERABLES Fin al Result [facility] [address] [place] [phone] * (ABNORMAL) Lipid Panel with Reflex to Direct LDL (03/11/2025 10:43 AM EDT) Triglycerides 65 <150 mg/dL [facility] Comment:Desirable Triglyceri de: less than 150 mg/dLBorderline High Triglyceride 150-199 mg/dLHigh Triglyceride: 200-499 mg/dLVery High Triglyceride: greater than or equal to 5OO mg/dL Cholesterol 120 <200 mg/dL [facility] Comment:Desirable Cholestero l: less than 200 mg/dLBorderline High Cholesterol: 200-239 mg/dLHigh Cholesterol: greater than 239 mg/dL LDL Cholesterol Calculated 74 <100 mg/dL [facility] Comment:Desirable LDL: less than 100 mg/dLNear Optimal/Above Optimal LDL: 110- 129 mg/dLBorderline High LDL: 130-159 mg/dLHigh LDL: 160-189 mg/dLVery High LDL: greater than or equal to 190 mg/dL HDL Cholesterol 33(L) >40 mg/dL [facility] Comment:Desirable HDL: great er than 40 mg/dL Note: This HDL assay may give artificially low results in patients with liver disease. Blood 03/11/2025 10:4 3 AM EDT 03/11/2025 11:50 AM EDT us Lottie Funez MD LAB BLOOD ORDERABLES Fin al Result [facility] [address] [place] [phone] * Hepatitis Panel, General (03/11/2025 10:43 AM EDT) Hepatitis A IgM Nonreactive Nonreactive [facility] Comment:IgM antibodies to VELÁZQUEZ V not detected; does not exclude earlyacute or recovered HAV infection. ~Hepatitis B Surface Antibody NONREACTIVE Nonreactive [facility] Comment:Nonreactive: < 8.00 mIU/mL Hepatitis B Core Antibody Nonreactive Nonreactive [facility] Hepatitis C Antibody Nonreactive Nonreactive [facility] Comment:Antibodies to HCV no t detected; does not exclude early acuteHCV infection. Hepatitis B Surface Ag Negative Negative [facility] Blood 03/11/2025 10:4 3 AM EDT 03/11/2025 11:34 AM EDT Lottie Funez MD LAB BLOOD ORDERABLES Fin al Result Performing Organization Address [facility] Co de Phone Number [facility] [address] [place] [phone] * HIV-1/2 Antigen and Antibodies, Fourth Generation, with Reflexes (03/11/2025 10:43 AM EDT) HIV AB/AG Nonreactive Nonreactive [facility] Comment:HIV-1 p24 Ag and/or HIV-1/HIV-2 Ab not detected.A test result that is nonreactive does not exclude thepossibility of exposure to or infection with HIV-1 and/orHIV-2. Nonreactive results in this assay for individualswith prior exposure to HIV-1 and/or HIV-2 may be due toantigen and antibody levels that are below the limit ofdetection of this assay.The Aviir HIV Ag/Ab Combo assay result andsupplemental assay results should be interpreted inconjunction with the patient's clinical presentation,history and other laboratory results. If the results areinconsistent with clinical evidence, additional testing issuggested to confirm the result. Blood Venous blood specimen / Unknown 03/11/2025 10:43 AM EDT 03/11/2025 11:34 AM EDT us Lottie Funez MD LAB BLOOD ORDERABLES Fin al Result Performing Organization Address [facility]/ZIP Co de Phone Number [facility] [address] [place] [phone] * (ABNORMAL) Comprehensive Metabolic Panel (03/11/2025 10:43 AM EDT) Sodium 141 135 - 145 mmol/L [facility] Potassium 4.6 3.3 - 5.1 mmol/L [facility] Chloride 104 96 - 108 mmol/L [facility] Carbon Dioxide 30(H) 22 - 29 mmol/L [facility] Anion Gap 12 12 - 20 [facility] Urea Nitrogen (BUN) 8(L) 9 - 16 mg/dL [facility] Creatinine, Serum 0.96 0.5 - 1.4 mg/dL [facility] Estimated Glomerular Filt Rate >60 [facility] Comment:Chronic Kidney Disea se: Estimated GFR < 60 mL/min/[id number] Kidney Disease: Estimated GFR < 15 mL/min/1.73m2 Glucose 85 60 - 115 mg/dL [facility] Calcium 9.0 8.4 - 10.2 mg/dL [facility] Bilirubin, Total 1.0 0.0 - 1.0 mg/dL [facility] Aspartate Amino Transferase 28 5 - 37 U/L [facility] Alanine Aminotransferase 29 0 - 40 U/L [facility] Total Protein 7.5 6.5 - 8.0 g/dL [facility] Albumin Level 5.0 3.5 - 5.0 g/dL [facility] Alkaline Phosphatase 65 39 - 117 U/L [facility] Blood Venous blood specimen / Unknown 03/11/2025 10:43 AM EDT 03/11/2025 11:50 AM EDT us Lottie Funez MD LAB BLOOD ORDERABLES Fin al Result [facility] [address] [place] [phone] from Last 3 Months Insurance HSN FULL Care Teams Vacuum Form Operator Relationship Specialty Start Date End Date Lottie Funez MD [address] [place] [phone] PCP - General Internal Medicine 03/11/25
--- OUTSIDE RECORDS SUMMARY | 2025-05-25 14:56 | XMS_ITS | Encounter Summary ---
Author Organization [employer] Address [address] [facility] [address] [place] [address] Care Team Providers Care Fashion Adviser Name Role Phone Lottie Funez MD Primary Care Provider + Reason for Visit * Reason Onset Date Comments chart prep 05/22/2025 Encounter Details Date Type Department Care Team (Late st Contact Info) Description 05/22/2025 Telephone [facility] [address] [place], [place] [phone] Lottie Funez MD [address] [place], [place] [phone] chart prep Social History Tobacco Use Types Packs/Day Years [...] with others, in a hotel, in a retirement, living outside on the street, on a [...] encounter Miscellaneous Notes * Telephone Encounter - Mukesh Leija [place] - 05/22/2025 11:55 AM EST Chart Prep Labs: done Images: done Referrals: complete Vaccines due: Covid, Flu, Hep B, HPV, and DTAP Screenings: not applicable Overdue care gaps: Not applicable documented in this encounter Plan of Treatment Upcoming Encounters Date Type Department Care Team (Late st Contact Info) Description 08/11/2025 1:00 PM EST Office Visit [facility] OPTOMETRY [address] [place] [address] Stephanie Phan, OD [address] [place] [phone] documented as of this encounter Visit Diagnoses Not on filedocumented in this encounter Additional Health Concerns Assessment Noted Time PHQ-9 Depression Total Score: 0 03/11/20 25 10:23 AM EDT documented as of this encounter Care Teams Fashion Adviser Relationship Specialty Start Date End Date Lottie Funez MD [address] [place] [phone] PCP - General Internal Medicine 03/11/25 documented as of this encounter
== END 2025-05-25 11:21 | disposition home or self-care (01) ==
LOC: HO.HHCL 11:20
PROVIDERS: PCP Internal Medicine; Visit Provider Internal Medicine
DX: D72.829 Elevated white blood cell count, unspecified (principal)
CPT/HCPCS: 36415; 85025